=== PATIENT | female | born 1990 | race African-American/Black ===

== ENCOUNTER 2022-01-19 17:28 | Emergency (ER) | payer BC, MEDICAID, OTHER ==
[2022-01-19] MEDS ORDERED: Lidocaine 1% PF 5 ML VIAL ONE (19:10)
== END 2022-01-19 20:10 | disposition home or self-care (01) ==
LOC: ERS 17:28
DX: L02.416 Cutaneous abscess of left lower limb (principal)
CPT/HCPCS: 10060